=== PATIENT | female | born 1965 | race Caucasian/White ===

== ENCOUNTER 2019-01-30 18:13 | Emergency (ER) | payer OTHER ==
--- NOTE | 2019-01-30 20:05 | ER Document Report ---
ED Medical Screen (RME) - General Chief Complaint: Flank Pain Stated Complaint: BLOOD IN URINE, RIGHT FLANK PAIN Time Seen by Provider: 01/30/19 19:58 Primary Care Provider: BUZZ CURTIS MD [Primary Care Provider] - Follow up as needed Notes: 53-year-old female with no significant past medical history presents emergency department with right flank pain and hematuria since this afternoon. Patient states she was at work and went to the bathroom and she noticed blood in the toilet then had significant right-sided pain. It has been constant since then and she has periods where it exacerbates. No urinary frequency/dysuria/urgency, no nausea or vomiting. No fevers. Exam: Well-appearing in no acute distress, left CVA tenderness I have greeted and performed a rapid initial assessment of this patient. A c omprehensive ED assessment and evaluation of the patient, analysis of test results and completion of medical decision making process will be conducted by an additional ED providers. TRAVEL OUTSIDE OF THE [place] IN LAST 30 DAYS: No - Related Data Allergies/Adverse Reactions: Penicillins Allergy (Verified 01/30/19 20:00) Physical Exam - Vital signs Vitals: Temp Pulse Resp BP Pulse Ox 98.0 F 78 20 134/84 H 97 01/30/19 18:41 01/30/19 18:41 01/30/19 18:41 01/30/19 18:41 01/30/19 18:41 Course - Vital Signs Vital signs: Temp Pulse Resp BP Pulse Ox 98.0 F 78 20 134/84 H 97 01/30/19 19:57 01/30/19 18:41 01/30/19 19:57 01/30/19 18:41 01/30/19 19:57 Doctor's Discharge - Discharge Referrals: BUZZ CURTIS MD [Primary Care Provider] - Follow up as needed
[2019-01-30 20:17] LABS: APPEARANCE,URINE SLIGHTLY-CLOUDY; BILIRUBIN,URINE NEGATIVE (NEGATIVE); COLOR,URINE YELLOW; GLUCOSE, URINE NEGATIVE (NEGATIVE); KETONES,URINE NEGATIVE (NEGATIVE); LEUKOCYTE ESTERASE,URINE NEGATIVE (NEGATIVE); NITRITE,URINE NEGATIVE (NEGATIVE); PROTEIN,URINE NEGATIVE (NEGATIVE); URINE SPECIFIC GRAVITY 1.005; UROBILINOGEN,URINE NEGATIVE mg/dL (<2.0)
[2019-01-30 20:31] LABS: ABSOLUTE EOSINOPHILS # (AUTO) 0.1 10^3/uL (0.0-0.6); ABSOLUTE LYMPHOCYTES (AUTO) 2.5 10^3/uL (0.5-4.7); ABSOLUTE MONOCYTES (AUTO) 0.5 10^3/uL (0.1-1.4); ABSOLUTE NEUT (AUTO) 4.5 10^3/uL (1.7-8.2); BASOPHILS % (AUTO) 0.4 % (0-2); EOSINOPHILS % (AUTO) 1.9 % (0-6); HEMATOCRIT 41.1 % (36.0-47.0); HEMOGLOBIN 14.4 g/dL (12.0-15.5); LYMPHOCYTES % (AUTO) 32.4 % (13-45); MEAN CORPUSCULAR HEMOGLOBIN 31.5 pg (27.0-33.4); MEAN CORPUSCULAR VOLUME 90 fl (80-97); MONOCYTES % (AUTO) 6.9 % (3-13); PLATELET COUNT 327 10^3/uL (150-450); RED BLOOD COUNT 4.56 10^6/uL (3.72-5.28); RED CELL DISTRIBUTION WIDTH 12.2 % (11.5-14.0); SEGMENTED NEUTROPHILS % (AUTO) 58.4 % (42-78); TOTAL CELLS COUNTED % (AUTO) 100 %; WHITE BLOOD COUNT 7.8 10^3/uL (4.0-10.5)
[2019-01-30 20:43] LABS: ALBUMIN 4.8 g/dL (3.5-5.0); ALKALINE PHOSPHATASE 75 U/L (38-126); ANION GAP 15 (5-19); ASPARTATE AMINO TRANSFERASE 23 U/L (14-36); BILIRUBIN,DIRECT 0.1 mg/dL (0.0-0.4); BILIRUBIN,TOTAL 0.6 mg/dL (0.2-1.3); BLOOD UREA NITROGEN 16 mg/dL (7-20); CALCIUM 10.6 mg/dL (8.4-10.2); CARBON DIOXIDE 29 mmol/L (22-30); CHLORIDE 95 mmol/L (98-107); GLUCOSE 100 mg/dL (75-110); POTASSIUM 3.2 mmol/L (3.6-5.0); TOTAL PROTEIN 7.8 g/dL (6.3-8.2)
--- NOTE | 2019-01-30 20:53 | ER Document Report ---
ED GI/ - General Chief Complaint: Flank Pain Stated Complaint: BLOOD IN URINE, RIGHT FLANK PAIN Time Seen by Provider: 01/30/19 19:58 Primary Care Provider: BUZZ CURTIS MD [NO LOCAL MD] - Follow up as needed Notes: 53-year-old woman presents to the emergency department with a 2 to 3-hour history of right flank pain. She notes blood in her urine which she noticed at work today. She denies a known history of kidney stones. She denies dysuria frequency or urgency. TRAVEL OUTSIDE OF THE [place] IN LAST 30 DAYS: No - Related Data Allergies/Adverse Reactions: Penicillins Allergy (Verified 01/30/19 20:00) Past Medical History - Social History Smoking Status: Unknown if Ever Smoked Family History: Reviewed & Not Pertinent Patient has suicidal ideation: No Patient has homicidal ideation: No Review of Systems - Review of Systems Notes: Constitutional: Negative for fever. HENT: Negative for sore throat. Eyes: Negative for visual changes. Cardiovascular: Negative for chest pain. Respiratory: Negative for shortness of breath. Gastrointestinal: + Right flank pain, no vomiting or diarrhea. Genitourinary: + Hematuria, negative for dysuria. Musculoskeletal: Negative for back pain. Skin: Negative for rash. Neurological: Negative for headaches, weakness or numbness. 10 point ROS negative except as marked above and in HPI. Physical Exam - Vital signs Vitals: Temp Pulse Resp BP Pulse Ox 98.0 F 78 20 134/84 H 97 01/30/19 18:41 01/30/19 18:41 01/30/19 18:41 01/30/19 18:41 01/30/19 18:41 - Notes Notes: PHYSICAL EXAMINATION: Physical Exam: General: Well-nourished well-developed female in no acute distress HEENT: NC/AT, pupils equal round and reactive to light, MM moist,nares clear, Neck: supple, no adenopathy, no masses. Lungs: clear, no wheezing, no rales no rhonchi CVS: Regular rate and rhythm no murmur gallop or rub Back: + Left flank/sacroiliac tenderness to palpation, no midline tenderness. Abdomen: Soft active nontender, no masses, no hepatosplenomegaly Ext: No edema clubbing or cyanosis. Neuro: Alert and responsive, moving all 4 extremities on command, cranial nerves intact. Skin: Intact no open lesions, no rash PSYCH: Normal mood, normal affect. Course - Re-evaluation Re-evalutation: 01/30/19 22:40 I reviewed the laboratory data and CT scan patient has a 5 mm proximal stone right side with mild hydronephrosis. She has gotten good relief with Toradol 30 mg IV. She has been given prescriptions for ibuprofen 800 mg, [place] 5/325, Flomax. I have instructed her to push fluids and to follow-up with urologist after the if needed. She is also been given instructions to return to the emergency department if the pain is uncontrolled or if there are other concerns. Patient acknowledges understanding of this plan and is in agreement. - Vital Signs Vital signs: Temp Pulse Resp BP Pulse Ox 98.0 F 71 16 104/62 94 01/30/19 23:00 01/30/19 23:00 01/30/19 23:00 01/30/19 23:00 01/30/19 23:00 - Laboratory Result Diagrams: 01/30/19 20:15 01/30/19 20:15 Laboratory results interpreted by me: 01/30/19 01/30/19 19:22 20:15 Potassium 3.2 L Chloride 95 L Calcium 10.6 H Urine Blood LARGE H 01/30/19 22:41 I have reviewed laboratory data and used this information for the treatment decisions regarding the patient. - Diagnostic Test Radiology reviewed: Image reviewed, Reports reviewed - CT abdomen pelvis without contrast: 5 mm proximal right ureteral stone with mild hydronephrosis. Discharge - Discharge Clinical Impression: Right ureteral stone, Renal colic on right side Condition: Good Disposition: HOME, SELF-CARE Instructions: Kidney Stone ([facility]) Additional Instructions: our symptoms should improve over the course of the next one week. If you continue to have pain for greater than one week or your pain is not controlled with the pain medications that you have been sent home with you need to return t o the emergency department. Please also return if you develop fever, persistent vomiting, or any other symptoms that are concerning to you. You should take ibuprofen 600 mg every 6 hours and use the oral norco as prescribed only for pain not controlled by ibuprofen. You are also been sent home with a medication called Flomax to help pass the stone. You've been given Zofran to assist with nausea. Please follow-up with urology in the next 2-3 days. Prescriptions: Tamsulosin HCl [Flomax 0.4 mg Cap.sr] 0.4 mg PO DAILY #7 cap.sr.24h Ibuprofen [Ibu] 800 mg PO TID PRN #30 tablet PRN Reason: Pain Scale Of 3 Hydrocodone/Acetaminophen [[place] 5-325 mg Tablet] 1 tab PO Q6 PRN #10 tablet PRN Reason: Ondansetron [Zofran Odt 4 mg Tablet] 1 - 2 tab PO Q4H PRN #15 tab.rapdis PRN Reason: For Nausea/Vomiting Referrals: BUZZ CURTIS MD [NO LOCAL MD] - Follow up as needed
[2019-01-30] MEDS ORDERED: NORMAL SALINE 1000 ML 1,000 ML IV ONE (20:56)
[2019-01-30] MEDS ORDERED: KETOROLAC TROMETHAMINE INJ/PF 30 MG/1 ML SDV IV ONE (20:57)
--- NOTE | 2019-01-30 20:59 | RADIOLOGY REPORT (SQ) ---
EXAM DESCRIPTION: CT ABDOMEN PELVIS WITHOUT IV CONTRAST COMPLETED DATE/TME: 01/30/2019 20:02 CLINICAL HISTORY: 53 years Female R flank pain suspect kidney stone COMPARISON: None. TECHNIQUE: Contiguous axial images obtained through the abdomen and pelvis without IV contrast. Reformatted images obtained. This exam was performed according to our department optimization program which includes automated exposure control, adjustment of the mA and/or kv according to patient size and/or use of iterative reconstruction technique. FINDINGS: There is a 7 mm noncalcified pulmonary nodule in the right lower lobe. Recommend follow-up per Fleischner protocol. 6-8 mm Low-Risk Patient: CT at 6-[address] at 18-24 months 6-8 mm High-Risk Patient: CT at 6-[address] at 18-24 months The liver appears unremarkable. Spleen is enlarged measuring 15 cm. Pancreas is within normal limits. No adrenal masses. The left kidney is unremarkable. There is mild right hydronephrosis with an obstructing 5 mm proximal ureteral calculus. The gallbladder is visualized. No aneurysmal dilatation of the aorta. No bowel obstruction. Unremarkable appendix. Diverticulosis without diverticulitis. Calcified uterine fibroid. Retroflexed uterus. No free pelvic fluid. IMPRESSION: Right hydronephrosis with an obstructing 5 mm proximal ureteral stone There is a 7 mm noncalcified pulmonary nodule in the right lower lobe. Recommend follow-up per Fleischner protocol. 6-8 mm Low-Risk Patient: CT at 6-[address] at 18-24 months 6-8 mm High-Risk Patient: CT at 6-[address] at 18-24 months
[2019-01-30] MEDS ORDERED: HYDROCODONE/ACETAMINOPHEN 5-325 MG (6 TAB/ER DISP) PO PRN (22:51)
[2019-01-30 23:01] VITALS: BP 104/62
== END 2019-01-30 23:10 | disposition home or self-care (01) ==
LOC: ER 18:13
DX: N20.1 Calculus of ureter (principal); N23 Unspecified renal colic; R31.9 Hematuria, unspecified
CPT/HCPCS: 99284; 96361; 96374; 36415; 85025; 80053; 81001; 74176; J1885; J7030

== ENCOUNTER 2019-03-04 05:21 | Emergency (ER) | payer OTHER ==
[2019-03-04] MEDS ORDERED: KETOROLAC TROMETHAMINE INJ/PF 30 MG/1 ML SDV IV ONE (06:47)
[2019-03-04] MEDS ORDERED: ONDANSETRON HCL INJ/PF 4 MG/2 ML SDV IV ONE ×2 (06:47→08:37)
[2019-03-04 07:08] LABS: ABSOLUTE BASOPHILS # (AUTO) 0.1 10^3/uL (0.0-0.2); ABSOLUTE EOSINOPHILS # (AUTO) 0.1 10^3/uL (0.0-0.6); ABSOLUTE LYMPHOCYTES (AUTO) 1.5 10^3/uL (0.5-4.7); ABSOLUTE MONOCYTES (AUTO) 0.6 10^3/uL (0.1-1.4); ABSOLUTE NEUT (AUTO) 6.1 10^3/uL (1.7-8.2); BASOPHILS % (AUTO) 0.8 % (0-2); EOSINOPHILS % (AUTO) 1.1 % (0-6); HEMATOCRIT 40.3 % (36.0-47.0); HEMOGLOBIN 14.2 g/dL (12.0-15.5); LYMPHOCYTES % (AUTO) 17.8 % (13-45); MEAN CORPUSCULAR HGB CONC 35.3 g/dL (32.0-36.0); MEAN CORPUSCULAR VOLUME 91 fl (80-97); PLATELET COUNT 305 10^3/uL (150-450); RED BLOOD COUNT 4.44 10^6/uL (3.72-5.28); RED CELL DISTRIBUTION WIDTH 12.4 % (11.5-14.0); SEGMENTED NEUTROPHILS % (AUTO) 73.3 % (42-78); TOTAL CELLS COUNTED % (AUTO) 100 %; WHITE BLOOD COUNT 8.4 10^3/uL (4.0-10.5)
--- NOTE | 2019-03-04 07:25 | ER Document Report ---
ED GI/ - General Chief Complaint: Possible Kidney Stone Stated Complaint: RIGHT SIDED FLANK PAIN Time Seen by Provider: 03/04/19 07:21 Primary Care Provider: MISSY MENDIETA MD [Primary Care Provider] - Follow up as needed Notes: 54-year-old woman presents to the emergency department with right sided flank and abdominal pain. She has a history of kidney stones and states that the pain became very severe this morning. She took 800 mg of ibuprofen and Zofran. The nausea is controlled however the pain is excruciating according to the patient. She was seen by the urologist last week and Flomax was added to her medications. She denies fever, back pain or pain that was out of control prior to this morning. TRAVEL OUTSIDE OF THE [place] IN LAST 30 DAYS: No - Related Data Allergies/Adverse Reactions: Penicillins Allergy (Verified 01/30/19 20:00) Past Medical History - Social History Smoking Status: Never Smoker Family History: Reviewed & Not Pertinent Patient has suicidal ideation: No Patient has homicidal ideation: No Renal/ Medical History: Reports: Hx Kidney Stones Past Surgical History: Reports: Hx Cholecystectomy, Hx Tubal Ligation Review of Systems - Review of Systems Notes: Constitutional: Negative for fever. HENT: Negative for sore throat. Eyes: Negative for visual changes. Cardiovascular: Negative for chest pain. Respiratory: Negative for shortness of breath. Gastrointestinal: + Nausea Genitourinary: See HPI Musculoskeletal: Negative for back pain. Skin: Negative for rash. Neurological: Negative for headaches, weakness or numbness. 10 point ROS negative except as marked above and in HPI. Physical Exam - Vital signs Vitals: Temp Pulse Resp BP Pulse Ox 97.7 F 77 20 158/98 H 97 03/04/19 05:26 03/04/19 05:26 03/04/19 05:26 03/04/19 05:26 03/04/19 05:26 - Notes Notes: PHYSICAL EXAMINATION: Physical Exam: General: Well-nourished well-developed 54-year-old woman in marked distress secondary to right flank and inguinal pain HEENT: NC/AT, pupils equal round and reactive to light, MM moist,nares clear, oropharynx clear Neck: supple, no adenopathy, no masses. Lungs: clear, no wheezing, no rales no rhonchi CVS: Regular rate and rhythm no murmur gallop or rub Abdomen: Soft active nontender, no masses, no hepatosplenomegaly Ext: No edema clubbing or cyanosis. Neuro: Alert and responsive, moving all 4 extremities on command, cranial nerves intact. Skin: Intact no open lesions, no rash PSYCH: Normal mood, normal affect. Course - Re-evaluation Re-evalutation: 03/04/19 12:22 Patient has resolution of her pain after Toradol and hydromorphone. She is also given a liter of IV fluid and IV Zofran. She is being discharged home from the emergency department to follow-up with the urologist as needed. I have suggested that if her symptoms are continuing or worsening she can return to the emergency department for further evaluation and treatment. - Vital Signs Vital signs: Temp Pulse Resp BP Pulse Ox 97.9 F 71 18 113/58 L 95 03/04/19 08:00 03/04/19 11:53 03/04/19 11:53 03/04/19 11:53 03/04/19 11:53 - Laboratory Result Diagrams: 03/04/19 06:55 03/04/19 06:55 Laboratory results interpreted by me: 03/04/19 03/04/19 06:55 08:00 Potassium 3.3 L Glucose 164 H Urine Protein 100 H Urine Ketones TRACE H Urine Blood LARGE H Urine Urobilinogen 2.0 H Ur Leukocyte Esterase TRACE H Discharge - Discharge Clinical Impression: Renal colic on right side Condition: Good Disposition: HOME, SELF-CARE Additional Instructions: Please continue the medications that you are taking for pain, ibuprofen every 8 hours, Flomax as given by the urologist. Feel free to return to the hospital if needed. Referrals: MISSY MENDIETA MD [Primary Care Provider] - Follow up as needed
[2019-03-04 07:32] LABS: ALBUMIN 4.6 g/dL (3.5-5.0); ALKALINE PHOSPHATASE 86 U/L (38-126); ANION GAP 12 (5-19); ASPARTATE AMINO TRANSFERASE 24 U/L (14-36); BILIRUBIN,TOTAL 0.5 mg/dL (0.2-1.3); BLOOD UREA NITROGEN 14 mg/dL (7-20); CALCIUM 9.9 mg/dL (8.4-10.2); CARBON DIOXIDE 30 mmol/L (22-30); CHLORIDE 99 mmol/L (98-107); GLUCOSE 164 mg/dL (75-110); POTASSIUM 3.3 mmol/L (3.6-5.0); TOTAL PROTEIN 7.4 g/dL (6.3-8.2)
[2019-03-04 08:18] LABS: AMORPHOUS SEDIMENT,URINE TRACE /HPF; APPEARANCE,URINE TURBID; BILIRUBIN,URINE NEGATIVE (NEGATIVE); COLOR,URINE AMBER; GLUCOSE, URINE NEGATIVE (NEGATIVE); KETONES,URINE TRACE mg/dL (NEGATIVE); LEUKOCYTE ESTERASE,URINE TRACE (NEGATIVE); NITRITE,URINE NEGATIVE (NEGATIVE); PROTEIN,URINE 100 mg/dL (NEGATIVE); URINE SPECIFIC GRAVITY 1.026
[2019-03-04] MEDS ORDERED: HYDROMORPHONE HCL INJ/PF 2 MG/ML AMPULE IV ONE (08:35)
[2019-03-04] MEDS ORDERED: NORMAL SALINE 1000 ML 1,000 ML IV ONE (08:36)
[2019-03-04 12:40] VITALS: BP 105/58
== END 2019-03-04 12:47 | disposition home or self-care (01) ==
LOC: ER 05:21
DX: N23 Unspecified renal colic (principal); R10.9 Unspecified abdominal pain; R11.0 Nausea; Z87.442 Personal history of urinary calculi; Z88.0 Allergy status to penicillin; Z90.49 Acquired absence of other specified parts of digestive tract; Z98.51 Tubal ligation status
CPT/HCPCS: 99284; 96361; 96374; 96375; 36415; 83690; 85025; 80053; 81001; J1885; J1170; J2405; J7030

== ENCOUNTER → 2019-04-06 | Outpatient (CLI) | payer OTHER ==
--- NOTE | 2019-04-06 11:41 | RADIOLOGY REPORT (SQ) ---
EXAM DESCRIPTION: CT ABD/PELVIS NO ORAL OR IV COMPLETED DATE/TIME: 04/06/2019 9:36 am REASON FOR STUDY: N20.1 CALCULUS OF URETER N20.1 CALCULUS OF URETER COMPARISON: 01/30/2019 TECHNIQUE: CT scan of the abdomen and pelvis performed without intravenous or oral contrast. Images reviewed with lung, soft tissue, and bone windows. Reconstructed coronal and sagittal MPR images revi ewed. All images stored on PACS. All CT scanners at this facility use dose modulation, iterative reconstruction, and/or weight based d osing when appropriate to reduce radiation dose to as low as reasonably achievable (ALARA). [facility]: Dose Right [facility]: CareDose [facility]: Dose Right [facility]: Teradose 4D [facility]: Smart [employer] RADIATION DOSE: CT Rad equipment meets quality standard of care and radiation dose reduction techniq ues were employed. CTDIvol: 17.7 mGy. DLP: 996 mGy-cm.mGy. LIMITATIONS: None. FINDINGS: LOWER CHEST: 7 mm perifissural nodule on the right on image 7 series 4. NON-CONTRASTED LIVER, SPLEEN, ADRENALS: Evaluation limited by lack of IV contrast. No identified sign ificant masses. PANCREAS: No masses. No peripancreatic inflammatory changes. GALLBLADDER: Surgically absent. RIGHT KIDNEY AND URETER: No suspicious masses. Assessment limited by lack of IV contrast. There is a tiny nonobstructing lower calyceal calculus. No ureteral calculus. No hydronephrosis or hydroure ter. LEFT KIDNEY AND URETER: No suspicious masses. Assessment limited by lack of IV contrast. No signifi cant calcifications. No hydronephrosis or hydroureter. AORTA AND RETROPERITONEUM: No aneurysm. No retroperitoneal masses or adenopathy. BOWEL AND PERITONEAL CAVITY: Mild descending and sigmoid diverticulosis with no acute associated infl ammation. No obvious mass. APPENDIX: Normal. PELVIS, BLADDER, AND ABDOMINAL WALL:No abnormal masses. No free fluid. Bladder normal. BONES: No significant findings. OTHER: No other significant finding. IMPRESSION: 1. There is a tiny nonobstructing lower calyceal calculus in the right kidney. There i s no ureteral stone or obstruction. 2. Diverticulosis coli. 3. There is 7 mm perifissural nodule on the right that is unchanged. Follow-up as below. COMMENT: FLEISCHNER CRITERIA FOR FOLLOW-UP OF PULMONARY NODULES Incidentally detected new nodules in persons 35 or older. HIGH RISK: History of smoking or other known risk factors. 6-8 mm single solid nodule: LOW RISK: CT 6-12 mo; then consider CT 18-24 mo. HIGH RISK: CT 6-12 mo; t hen CT 18-24 mo. Quality ID # [id number]: Final reports with documentation of one or more dose reduction techniques (e.g., Au tomated exposure control, adjustment of the mA and/or kV according to patient size, use of iterative reconstruction technique) TECHNICAL DOCUMENTATION: JOB ID: [id number] 2010 [employer]- All Rights Reserved Reading location - IP/workstation name: [email or web address]
== END ==
LOC: RAD 09:22
PROVIDERS: ATTEND Student in an Organized Health Care Education/Training Program
DX: N13.30 Unspecified hydronephrosis (principal); N20.1 Calculus of ureter; R10.9 Unspecified abdominal pain
CPT/HCPCS: 74176

== ENCOUNTER 2019-11-23 18:15 | Emergency (ER) | payer OTHER ==
--- NOTE | 2019-11-23 18:19 | ER Document Report ---
ED Medical Screen (RME) - General Stated Complaint: SWALLOWED FOREIGN BODY Time Seen by Provider: 11/23/19 18:17 Primary Care Provider: SHIRA THURSTON MD [Primary Care Provider] - Follow up as needed TRAVEL OUTSIDE OF THE [place] IN LAST 30 DAYS: No - HPI Notes: 11/23/19 18:18 54-year-old female to the emergency department with complaints of something stuck in her throat. She states she is eating bocce [place] when she took a bite of food she ate it and felt like it went down until she felt something hard. She states she try to pass it with water but she is not been able to. She states that is very uncomfortable. She states she has a deviated trachea. Denies shortness of breath but she feels like it is very very uncomfortable. This is never happened to her before. In triage patient is not stridorous but she is struggling to talk to me and she is tearful. Oxygen levels were reassuring. Updated charge about the patient and she will be bedded. I performed a brief medical screening exam on the patient determined that the patient needs further evaluation and management by main side provider. I have placed initial orders to help expedite care. - Related Data Allergies/Adverse Reactions: Penicillins Allergy (Verified 11/23/19 18:16) Past Medical History Renal/ Medical History: Reports: Hx Kidney Stones Past Surgical History: Reports: Hx Cholecystectomy, Hx Tubal Ligation Doctor's Discharge - Discharge Referrals: SHIRA THURSTON MD [Primary Care Provider] - Follow up as needed
--- NOTE | 2019-11-23 18:52 | RADIOLOGY REPORT (SQ) ---
EXAM DESCRIPTION: SOFT TISSUE NECK IMAGES COMPLETED DATE/TIME: 11/23/2019 6:41 pm REASON FOR STUDY: food bolus impaction COMPARISON: None. NUMBER OF VIEWS: Two views. TECHNIQUE: AP and lateral radiographic image of the soft tissues of the neck. LIMITATIONS: None. FINDINGS: EPIGLOTTIS: Normal. Contour normal. Aryepiglottic folds normal. PREVERTEBRAL SOFT TISSUES: Normal. No soft tissue swelling. SUBGLOTTIC AREA: Normal. No narrowing. RETROPHARYNGEAL SPACE: Normal. No soft tissue masses. BONES: No significant findings. LUNG APICES: Normal. OTHER: No radiopaque foreign body. No other significant finding. IMPRESSION: No significant findings. TECHNICAL DOCUMENTATION: JOB ID: [id number] [place]-72 2010 [employer]- All Rights Reserved Reading location - IP/workstation name: [email or web address]
[2019-11-23] MEDS ORDERED: MORPHINE SULFATE 10 MG/ML INJ IV ONE (19:08)
[2019-11-23] MEDS ORDERED: ONDANSETRON 4 MG TAB.RAPDIS PO ONE (19:09)
--- NOTE | 2019-11-23 19:55 | RADIOLOGY REPORT (SQ) ---
EXAM DESCRIPTION: CT SOFT TISSUE NECK WITHOUT IMAGES COMPLETED DATE/TIME: 11/23/2019 7:26 pm REASON FOR STUDY: fb sensation, dysphagia COMPARISON: None. TECHNIQUE: Noncontrast scanning from skull base through lung apices with review of bone, soft tissue and lung windows. Reconstructed coronal and sagittal MPR images reviewed. All images stored on PAC S. All CT scanners at this facility use dose modulation, iterative reconstruction, and/or weight based d osing when appropriate to reduce radiation dose to as low as reasonably achievable (ALARA). [facility]: Dose Right [facility]: CareDose [facility]: Dose Right [facility]: Teradose 4D [facility]: Smart [employer] RADIATION DOSE: CT Rad equipment meets quality standard of care and radiation dose reduction techniq ues were employed. CTDIvol: 18.7 mGy. DLP: 628 mGy-cm. mGy. LIMITATIONS: None. FINDINGS: SKULL BASE: Intact. MAJOR SALIVARY GLANDS: No solid or cystic masses. No inflammatory changes. LYMPHADENOPATHY: No adenopathy. MUCOSAL MASSES OR ASYMMETRY: No mucosal masses or asymmetry. LARYNX/CORDS: No abnormal findings. LUNG APICES: Clear. BONES: Intact. THYROID: Multiple thyroid nodules, largest 1.6 cm in the left lobe. PARANASAL SINUSES: Mild mucosal thickening. OTHER: No other significant finding. IMPRESSION: NO ACUTE FINDING IN THE SOFT TISSUES OF THE NECK. Multiple thyroid nodules, largest 1.6 cm in the left lobe. TECHNICAL DOCUMENTATION: JOB ID: [id number] [place]-72 Quality ID # [id number]: Final reports with documentation of one or more dose reduction techniques (e.g., Au tomated exposure control, adjustment of the mA and/or kV according to patient size, use of iterative reconstruction technique) 2010 [employer]- All Rights Reserved Reading location - IP/workstation name: [email or web address]
[2019-11-23] MEDS ORDERED: HYDROMORPHONE HCL INJ/PF 2 MG/ML AMPULE IV ONE (20:12)
[2019-11-23] MEDS ORDERED: ONDANSETRON HCL INJ/PF 4 MG/2 ML SDV IV ONE ×2 (20:12→23:00)
--- NOTE | 2019-11-23 20:12 | ER Document Report ---
ED General - General Chief Complaint: Swallowed Foreign Body Stated Complaint: SWALLOWED FOREIGN BODY Time Seen by Provider: 11/23/19 18:17 Mode of Arrival: Ambulatory Information source: Patient Notes: Patient is a 54-year-old female who was eating a hibachi shrimp earlier this evening. She swallowed one of the bites and felt sudden pain in her esophagus. Its causing her to feel little bit short of breath. She is able to swallow liquids and keep it down. She has had a dose of morphine already and it has made no difference in her pain. Soft tissue neck x-ray and CT did not reveal any foreign bodies in the esophagus TRAVEL OUTSIDE OF THE [place] IN LAST 30 DAYS: No - Related Data Allergies/Adverse Reactions: Penicillins Allergy (Verified 11/23/19 18:16) Home Medications: gerd. htn Past Medical History - Social History Smoking Status: Unknown if Ever Smoked Chew tobacco use (# tins/day): No Frequency of alcohol use: Occasional Family History: Reviewed & Not Pertinent Patient has homicidal ideation: No Renal/ Medical History: Reports: Hx Kidney Stones Past Surgical History: Reports: Hx Cholecystectomy, Hx Tubal Ligation Review of Systems - Review of Systems Notes: Constitutional: No fevers. No chills. EENT: No eye redness. No eye pain. No ear pain. Pain in throat Cardiovascular: No chest pain. No palpitations. Respiratory: No cough. No shortness of breath. No respiratory distress. Gastrointestinal: No abdominal pain. No nausea, vomiting, or diarrhea. Genitourinary: Atraumatic. No lesions. No pain. No discharge. Musculoskeletal: Atraumatic. No swelling. No deformities. Skin: No rash or lesions. Lymphatic: No swollen lymph nodes. Neurologic: No headache. No syncope. Psychiatric: No suicidal or homicidal ideation. Physical Exam - Vital signs Vitals: Temp 97.8 F 11/23/19 18:16 - Notes Notes: General: Well-developed, well-nourished. Patient looks very uncomfortable Cardiac: Well-perfused. Regular rate and rhythm. No murmurs, rubs, or gallops. Pulmonary: No respiratory distress. No cyanosis. Bilateral lung romero are clear to auscultation. Abdominal: Non-distended. Non-rigid. Bowels sounds are present in all four quadrants. No guarding or rebound. HEENT: Head is atraumatic. Conjunctivae not reddened. No tearing. PERRL. EOMI. Orbits atraumatic. No periorbital swelling or erythema. Oropharynx is without erythema, swelling, or exudates. No pooling of secretions Neck: Supple. No adenopathy. No meningismus. Dermatologic: Warm with good turgor. No rash. Atraumatic. Chest: Atraumatic. No chest wall tenderness to palpation. Musculoskeletal: Moves all extremities well. No range of motion deficits. no muscular or joint tenderness. No paraspinal muscle tenderness. no midline spinal tenderness or step-off. Genitourinary: Examination deferred Neurologic: No gross neurologic deficits. Psychiatric: Normal mood. Course - Re-evaluation Re-evalutation: 11/23/19 20:11 Patient is no relief with morphine. We will start an IV and give more pain medicine as requested. Will discuss further with Dr. Sanches to see if there is any other interventions that we want to try before we call GI doctor. 11/23/19 21:38 So the decision was made to consult GI specialist for possible scope. I spoke to [facility]. He was reluctant to do a scope until ENT took a look to make sure it was not higher up. I spoke to Dr. Harrison and who is on -call for ENT at [facility]. He said he would be happy to accept the patient ER to ER so long as we spoke to the emergency room physician. Dr. Luciano was working in the ER. discussed the case with him and he accepted it as an ER transfer and Dr. Downing will take a look at the patient in the emergency department. 11/23/19 22:03 - Vital Signs Vital signs: Temp Pulse Resp BP Pulse Ox 97.8 F 66 17 112/65 94 11/23/19 23:43 11/23/19 23:43 11/23/19 23:43 11/23/19 23:43 11/23/19 23:43 - Laboratory Result Diagrams: 11/23/19 20:45 11/23/19 20:45 Laboratory results interpreted by me: 11/23/19 20:45 Potassium 3.5 L Chloride 97 L Carbon Dioxide 32 H Glucose 115 H - Diagnostic Test Radiology reviewed: Reports reviewed Discharge - Discharge Clinical Impression: Odynophagia Dysphagia Qualifiers: Dysphagia type: unspecified Qualified Code(s): R13.10 - Dysphagia, unspecified Chest pain Qualifiers: Chest pain type: unspecified Qualified Code(s): R07.9 - Chest pain, unspecified Condition: Stable Disposition: [facility] Admitting Provider: ER TO ER-DR LUCIANO/DR ROCHE
[2019-11-23 21:21] LABS: ABSOLUTE EOSINOPHILS # (AUTO) 0.1 10^3/uL (0.0-0.6); ABSOLUTE LYMPHOCYTES (AUTO) 1.9 10^3/uL (0.5-4.7); ABSOLUTE MONOCYTES (AUTO) 0.5 10^3/uL (0.1-1.4); ABSOLUTE NEUT (AUTO) 3.6 10^3/uL (1.7-8.2); BASOPHILS % (AUTO) 0.6 % (0-2); EOSINOPHILS % (AUTO) 2.1 % (0-6); HEMATOCRIT 40.6 % (36.0-47.0); HEMOGLOBIN 14.4 g/dL (12.0-15.5); LYMPHOCYTES % (AUTO) 30.6 % (13-45); MEAN CORPUSCULAR HEMOGLOBIN 32.6 pg (27.0-33.4); MEAN CORPUSCULAR HGB CONC 35.4 g/dL (32.0-36.0); MEAN CORPUSCULAR VOLUME 92 fl (80-97); MONOCYTES % (AUTO) 7.8 % (3-13); PLATELET COUNT 319 10^3/uL (150-450); RED BLOOD COUNT 4.41 10^6/uL (3.72-5.28); RED CELL DISTRIBUTION WIDTH 12.6 % (11.5-14.0); SEGMENTED NEUTROPHILS % (AUTO) 58.9 % (42-78); TOTAL CELLS COUNTED % (AUTO) 100 %; WHITE BLOOD COUNT 6.1 10^3/uL (4.0-10.5)
[2019-11-23 21:32] LABS: ANION GAP 9 (5-19); BLOOD UREA NITROGEN 17 mg/dL (7-20); CALCIUM 9.9 mg/dL (8.4-10.2); CARBON DIOXIDE 32 mmol/L (22-30); CHLORIDE 97 mmol/L (98-107); GLUCOSE 115 mg/dL (75-110); POTASSIUM 3.5 mmol/L (3.6-5.0)
--- NOTE | 2019-11-23 21:51 | ER Document Report ---
Doctor's Note Notes: 11/23/19 21:46 I was asked to evaluate the patient by the HARLEEN. She states that she was out to dinner and ate shrimp. She felt something hard go down her throat. She is unsure if it was a tail of a shrimp. Patient states that she has had pain in her throat since then. She is tolerating her secretions but states that it hurts. An x-ray of the neck was obtained but did not show any foreign body. On exam, patient appears anxious. She is breathing easy on room air. Breathing is nonlabored. Skin color appears normal. She is alert and oriented. Patient is moving all extremities. Heart is regular rate and rhythm. Bilateral breath sounds present. I was called by nursing staff that patient states she now has chest pain. We obtained a cardiac work-up which is unremarkable. EKG shows sinus rhythm at a rate of 77. QTc 453. No acute ST changes. No previous EKG available for comparison. I recommended that we obtain a CT of her neck to evaluate for foreign body that was not visible on x-ray. The CT was negative. I recommended that we talk to GI. The GI doctor at [facility] stated that he thinks ENT should evaluate her first as it may be lodged in the posterior pharynx. Talked to the ENT physician who stated that we could transfer her ED to ED and he could scope her in the ED at [facility]. Patient was agreeable to this. Discussed with the ER attending at [facility] who accepted the patient. Patient will be transferred by ambulance. Patient is resting easy now. She is in agreement with the plan. We are awaiting transport. 11/23/19 21:51 11/24/19 01:37
--- NOTE | 2019-11-23 21:55 | EKG REPORT ---
SEVERITY:- BORDERLINE ECG - SINUS RHYTHM LVH BY VOLTAGE BORDERLINE T ABNORMALITIES, INFERIOR LEADS : Confirmed by: Ridge Huntley 23-Nov-2019 21:54:09
[2019-11-23] MEDS ORDERED: PROMETHAZINE HCL INJ 25 MG/1 ML VIAL IV ONE (23:00)
[2019-11-23 23:44] VITALS: BP 112/65
== END 2019-11-23 23:46 | disposition short-term general hospital (02) ==
LOC: ER 18:15
DX: R13.10 Dysphagia, unspecified (principal); R07.9 Chest pain, unspecified; R07.0 Pain in throat; Z79.899 Other long term (current) drug therapy; Z88.0 Allergy status to penicillin
CPT/HCPCS: 93005; 99285; 96374; 96375; 36415; 85025; 80048; 84484; 70360; 70490; 93010; S0119; J2270; J1170; J2550; J2405

== ENCOUNTER 2020-02-21 05:23 | Day surgery (SDC) | payer OTHER ==
[2020-02-16 10:34] LABS: ABSOLUTE EOSINOPHILS # (AUTO) 0.2 10^3/uL (0.0-0.6); ABSOLUTE LYMPHOCYTES (AUTO) 1.9 10^3/uL (0.5-4.7); ABSOLUTE MONOCYTES (AUTO) 0.5 10^3/uL (0.1-1.4); ABSOLUTE NEUT (AUTO) 3.7 10^3/uL (1.7-8.2); BASOPHILS % (AUTO) 0.7 % (0-2); HEMATOCRIT 39.8 % (36.0-47.0); HEMOGLOBIN 13.8 g/dL (12.0-15.5); LYMPHOCYTES % (AUTO) 30.2 % (13-45); MEAN CORPUSCULAR HEMOGLOBIN 31.4 pg (27.0-33.4); MEAN CORPUSCULAR HGB CONC 34.7 g/dL (32.0-36.0); MEAN CORPUSCULAR VOLUME 91 fl (80-97); MONOCYTES % (AUTO) 7.2 % (3-13); PLATELET COUNT 324 10^3/uL (150-450); RED BLOOD COUNT 4.39 10^6/uL (3.72-5.28); RED CELL DISTRIBUTION WIDTH 12.2 % (11.5-14.0); SEGMENTED NEUTROPHILS % (AUTO) 58.9 % (42-78); TOTAL CELLS COUNTED % (AUTO) 100 %; WHITE BLOOD COUNT 6.3 10^3/uL (4.0-10.5)
[2020-02-16 10:42] LABS: APPEARANCE,URINE CLOUDY; BILIRUBIN,URINE NEGATIVE (NEGATIVE); COLOR,URINE YELLOW; GLUCOSE, URINE NEGATIVE (NEGATIVE); KETONES,URINE NEGATIVE (NEGATIVE); LEUKOCYTE ESTERASE,URINE SMALL (NEGATIVE); NITRITE,URINE NEGATIVE (NEGATIVE); PROTEIN,URINE 30 mg/dL (NEGATIVE); URINE SPECIFIC GRAVITY 1.015; UROBILINOGEN,URINE NEGATIVE mg/dL (<2.0)
[2020-02-16 10:58] LABS: ALBUMIN 4.5 g/dL (3.5-5.0); ALKALINE PHOSPHATASE 79 U/L (38-126); ANION GAP 8 (5-19); ASPARTATE AMINO TRANSFERASE 25 U/L (14-36); BILIRUBIN,DIRECT 0.2 mg/dL (0.0-0.4); BILIRUBIN,TOTAL 0.5 mg/dL (0.2-1.3); BLOOD UREA NITROGEN 15 mg/dL (7-20); CALCIUM 9.9 mg/dL (8.4-10.2); CARBON DIOXIDE 32 mmol/L (22-30); CHLORIDE 99 mmol/L (98-107); GLUCOSE 109 mg/dL (75-110); POTASSIUM 4.3 mmol/L (3.6-5.0); TOTAL PROTEIN 7.2 g/dL (6.3-8.2)
[~2020-02-21 05:23] MED LIST: GENTAMICIN SULFATE 80 MG in DEXTROSE 5%-WATER 100 ML IV PRN; LACTATED RINGERS 1000 ML IV PRN; LIDOCAINE 0.5% INJ-PF (5 MG/ML) 50 ML SDV SUBCUT PRN
[2020-02-21] MEDS ORDERED: ONDANSETRON HCL INJ/PF 4 MG/2 ML SDV ONE (06:48)
[2020-02-21] MEDS ORDERED: DEXMEDETOMIDINE INJ 80 MCG/20 ML VIAL IV ONE (06:48)
[2020-02-21] MEDS ORDERED: PROPOFOL INJ 200 MG/20 ML VIAL IV ONE ×3 (06:48→08:30)
[2020-02-21] MEDS ORDERED: MIDAZOLAM 2 MG/2 ML INJ ONE (06:48)
[2020-02-21] MEDS ORDERED: FENTANYL CITRATE INJ/PF 100 MCG/2 ML AMPUL ONE (06:48)
[2020-02-21] MEDS ORDERED: KETOROLAC TROMETHAMINE 60 MG/2 ML SDV ONE (06:49)
[2020-02-21] MEDS ORDERED: MEPERIDINE HCL/PF INJ 25 MG/1 ML DISP.SYRIN IV PRN (07:45)
[2020-02-21] MEDS ORDERED: ONDANSETRON HCL INJ/PF 4 MG/2 ML SDV IV PRN (07:45)
[2020-02-21] MEDS ORDERED: MORPHINE SULFATE 10 MG/ML INJ IV PRN (07:45)
[2020-02-21] MEDS ORDERED: FENTANYL CITRATE INJ/PF 100 MCG/2 ML AMPUL IV PRN ×3 (07:45)
[2020-02-21] MEDS ORDERED: DIPHENHYDRAMINE HCL 50 MG/ML VIAL IV PRN (07:45)
--- NOTE | 2020-02-21 08:40 | Operative Report ---
Operative Report DATE OF SURGERY: 02/21/20 PREOPERATIVE DIAGNOSIS: Post menopausal bleeding POSTOPERATIVE DIAGNOSIS: Post menopausal bleeding OPERATION: Suction D&C / Hysteroscopy SURGEON: IMSSY BERMEO ANESTHESIA: GA TISSUE REMOVED OR ALTERED: Endometrium COMPLICATIONS: None ESTIMATED BLOOD LOSS: 30 cc INTRAOPERATIVE FINDINGS: Post menopausal bleeding PROCEDURE: Patient was brought into the OR and placed on the table in a supine position. Patient was then inducted under general anesthesia. She was then repositioned in dorsolithotomy position prepped and draped. A timeout was called and the procedure was discussed with the OR staff. The bladder was drained of 100 cc of clear yellow urine. Pelvic under anesthesia was performed. Uterus was slightly enlarged and retroflexed. Adnexa palpated negative. Weighted vaginal speculum was then inserted into the vagina. Lateral retractor was also used in the vagina. Cervix was grasped on its anterior lip with a single-tooth tenaculum. An Allis clamp was also applied to the anterior lip of the cervix. Both of these clamps were removed then. The weighted speculum was removed. A bivalve speculum was inserted. This was open. The anterior lip of the cervix was then once again grasped with a single-tooth tenaculum. Uterus was sounded to 10 cm then. A curettage was obtained of the endocervix then. No tissue was returned. The cervix was then dilated to a #9 Hegar dilator. Using a suction catheter #8 the contents of the uterine cavity was then suction. This procedure was performed x3. Hysteroscope was then inserted. Pictures of the endometrial cavity were taken. The excess saline was then suctioned out of the uterine cavity. Polyp forceps were then used to remove any remaining tissue. The endometrial cavity was then curetted with a medium size sharp curette. The hysteroscope was inserted once again. There seemed to be strands of tissue remaining. Once again polyp forceps were used but no further tissue was removed. This terminated the procedure. Equipment was removed. Patient was taken out of the dorsolithotomy position placed back in supine position and anesthesia was discontinued. Patient tolerated procedure well. Estimated blood loss was 30 cc. The patient was then transferred to the recovery room in satisfactory condition. This is Dr. Bermeo dictating on 02/21/2020 thank you
[2020-02-21] MEDS ORDERED: OXYCODONE-ACETAMINOPHEN 5-325 MG TABLET ONE (09:00)
[2020-02-21] MEDS ORDERED: OXYCODONE-ACETAMINOPHEN 5-325 MG TABLET PO PRN (09:08)
[2020-02-21] MEDS ORDERED: PROMETHAZINE HCL INJ 25 MG/1 ML VIAL IV PRN (09:09)
[2020-02-21 10:06] VITALS: BP 107/69
== END 2020-02-21 10:00 | disposition home or self-care (01) ==
LOC: OROUT 05:23
PROVIDERS: ATTEND Obstetrics & Gynecology
DX: N95.0 Postmenopausal bleeding (principal); N84.0 Polyp of corpus uteri; N93.8 Other specified abnormal uterine and vaginal bleeding; I10 Essential (primary) hypertension; K21.9 Gastro-esophageal reflux disease without esophagitis; Z90.49 Acquired absence of other specified parts of digestive tract; Z98.51 Tubal ligation status; Z79.899 Other long term (current) drug therapy; E66.9 Obesity, unspecified; Z87.891 Personal history of nicotine dependence; Z01.812 Encounter for preprocedural laboratory examination; Z20.822 Contact with and (suspected) exposure to COVID-19; Z68.38 Body mass index [BMI] 38.0-38.9, adult; Z87.442 Personal history of urinary calculi
CPT/HCPCS: 36415 ×2; 84132; 85025; 87635; 80053; 81001; 88305 ×2; 58558; J2250; J1885; J3010; J1580; J2405; J7060; J2704; J3490; C9803